=== PATIENT | male | born 1960 | race Caucasian/White ===

== ENCOUNTER 2019-11-10 07:46 | Outpatient (CLI) | payer OTHER, SELFPAY ==
[2019-11-10 08:19] LABS: Hemoglobin A1C 8.3 % (<5.7)
[2019-11-10 08:26] LABS: Alanine Aminotransferase 28 U/L (4-50); Albumin Level 4.2 g/dL (3.5-5.1); Alkaline Phosphatase 53 U/L (38-126); Aspartate Amino Transferase 24 U/L (17-59); Bilirubin,Total 0.4 mg/dL (0.2-1.3); Blood Urea Nitrogen 7 mg/dL (9-20); Calcium 8.5 mg/dL (8.4-10.2); Carbon Dioxide 27 mmol/L (22-30); Chloride 99 mmol/L (98-107); Cholesterol 156 mg/dL (0-200); Estimated Glomerular Filt Rate > 60; Glucose 192 mg/dL (75-110); HDL Direct 34 mg/dL; Potassium 3.4 mmol/L (3.4-5.0); Sodium 135 mmol/L (137-145); Triglycerides 105 mg/dL (<150)
[2019-11-10 08:37] LABS: LDL Cholesterol Direct 105 mg/dL
[2019-11-10 08:58] LABS: Prostate Specific Antigen 4.5 ng/mL (< OR = 4.0)
== END 2019-11-10 07:47 | disposition home or self-care (01) ==
PROVIDERS: PCP Emergency Medicine; Visit Provider Emergency Medicine
DX: E78.2 Mixed hyperlipidemia (principal); E11.9 Type 2 diabetes mellitus without complications; Z12.5 Encounter for screening for malignant neoplasm of prostate
CPT/HCPCS: 36415; 80053; 80061; 83036; 84153

== ENCOUNTER 2020-12-22 09:01 | Outpatient (CLI) | payer OTHER, SELFPAY ==
[2020-12-22 09:30] LABS: Hemoglobin A1C 8.7 % (<5.7)
[2020-12-22 09:35] LABS: Alanine Aminotransferase 19 U/L (4-50); Albumin Level 4.3 g/dL (3.5-5.1); Alkaline Phosphatase 46 U/L (38-126); Anion Gap 6 mmol/L (8-16); Aspartate Amino Transferase 23 U/L (17-59); Bilirubin,Total 0.6 mg/dL (0.2-1.3); Blood Urea Nitrogen 10 mg/dL (9-20); Calcium 9.2 mg/dL (8.4-10.2); Carbon Dioxide 31 mmol/L (22-30); Chloride 101 mmol/L (98-107); Cholesterol 145 mg/dL (0-200); Estimated Glomerular Filt Rate > 60; Glucose 174 mg/dL (75-110); HDL Direct 34 mg/dL; Potassium 4.1 mmol/L (3.4-5.0); Sodium 138 mmol/L (137-145); Triglycerides 126 mg/dL (<150)
[2020-12-22 09:46] LABS: LDL Cholesterol Direct 81 mg/dL
[2020-12-22 10:05] LABS: Prostate Specific Antigen 5.7 ng/mL (< OR = 4.0)
== END 2020-12-22 09:02 | disposition home or self-care (01) ==
PROVIDERS: PCP Emergency Medicine; Visit Provider Emergency Medicine
DX: E11.9 Type 2 diabetes mellitus without complications (principal); E78.5 Hyperlipidemia, unspecified; Z12.5 Encounter for screening for malignant neoplasm of prostate
CPT/HCPCS: 36415; 80053; 80061; 83036; 84153; G0103

== ENCOUNTER 2021-08-28 10:33 | Outpatient (CLI) | payer OTHER, MEDICAID, SELFPAY ==
--- NOTE | ~2021-08-28 | MR_ITS ---
EXAMINATION: MR pelvis wo/w con DATE: 08/28/2021 12:03 INDICATION: Malignant neoplasm of the prostate TECHNIQUE: Magnetic resonance imaging (MRI) of the pelvis was performed without and with 20 mL Multih ance intravenous contrast. Full-field sequences of the pelvis included axial and coronal T2-weighted SS FSE, axial, sagittal and coronal 2D FIESTA, axial 2D FIESTA FS, axial SSFSE-IR DEB, axial dual-ech o T1-weighted FSPGR, axial and coronal T1 weighted LAVA, 3D axial T2 Cube, axial diffusion-weighted S E with apparent diffusion coefficient (ADC) maps. Postcontrast sequences included a time course axial T1-weighted LAVA and sagittal and coronal T1-weighted LAVA. COMPARISON: None. FINDINGS: Mild prostatomegaly measuring 4.5 x 3.1 x and 3.3 cm. Region of T2 hyperintense nonenhancing hydrogel positioned between the prostate in the anterior wall of the rectum. The collection of hydrogel measu res 1.4 cm in maximal thickness, 2.6 cm left to right and 4.7 cm craniocaudally. Bladder is normal. V isualized portion of the bowels are unremarkable. Couple nonenhancing right renal cysts the largest a 2.7 similar exophytic cyst at the lower pole. No pathologically enlarged pelvic or inguinal lymphade nopathy. Small bilateral fat-containing inguinal hernias. Moderate lower lumbar spondylosis. No abnor estefania enhancing bone lesions. IMPRESSION: 1. 4.7 x 2.6 x 1.4 cm collection of hydrogel between the mildly enlarged prostate in the anterior wal l of the rectum. 2. No evident pelvic metastatic disease. 3. Small bilateral fat-containing inguinal hernias. Reviewed, dictated and finalized at location A. HER IMPRESSION: 1. 4.7 x 2.6 x 1.4 cm collection of hydrogel between the mildly enlarged prosta te in the anterior wall of the rectum. 2. No evident pelvic metastatic disease. 3. Small bilateral fat-containing inguinal hernias.
[2021-08-28 11:23] LABS: Estimated Glomerular Filt Rate > 60
== END 2021-08-28 10:34 | disposition home or self-care (01) ==
LOC: ANHIMG 10:42
PROVIDERS: PCP Emergency Medicine; Visit Provider Radiology Radiation Oncology
DX: C61 Malignant neoplasm of prostate (principal); K40.20 Bilateral inguinal hernia, without obstruction or gangrene, not specified as recurrent
CPT/HCPCS: 72197; A9577

== ENCOUNTER 2021-09-18 09:35 | Outpatient (CLI) | payer OTHER, MEDICAID, SELFPAY ==
[2021-09-18 10:13] LABS: Alanine Aminotransferase 25 U/L (4-50); Albumin Level 4.3 g/dL (3.5-5.1); Anion Gap 7 mmol/L (8-16); Aspartate Amino Transferase 26 U/L (17-59); Bilirubin,Total 0.5 mg/dL (0.2-1.3); Blood Urea Nitrogen 10 mg/dL (9-20); Calcium 9.1 mg/dL (8.4-10.2); Carbon Dioxide 29 mmol/L (22-30); Chloride 101 mmol/L (98-107); Estimated Glomerular Filt Rate > 60; Glucose 219 mg/dL (65-110); Potassium 3.9 mmol/L (3.4-5.0); Sodium 137 mmol/L (137-145); Triglycerides 240 mg/dL (<150)
[2021-09-18 10:14] LABS: Alkaline Phosphatase 55 U/L (38-126); Cholesterol 193 mg/dL (0-200); HDL Direct 38 mg/dL
[2021-09-18 10:24] LABS: LDL Cholesterol Direct 119 mg/dL
[2021-09-18 10:52] LABS: Microalbumin Urine Random 52.6 mg/L (0-16.7)
[2021-09-18 10:53] LABS: Creatinine Urine 61.1 mg/dL; MALB Creatinine Ratio 86.1 mg/g (0-30)
== END 2021-09-18 09:36 | disposition home or self-care (01) ==
LOC: ANHLAB 09:39
PROVIDERS: PCP Emergency Medicine; Visit Provider Emergency Medicine
DX: I10 Essential (primary) hypertension (principal); E78.2 Mixed hyperlipidemia; E11.9 Type 2 diabetes mellitus without complications
CPT/HCPCS: 36415; 80053; 80061; 82043; 83036

== ENCOUNTER 2021-12-17 08:28 | Outpatient (CLI) | payer OTHER, MEDICAID, SELFPAY ==
--- NOTE | ~2021-12-17 | XR_ITS ---
EXAMINATION: XR hip LT min 2V DATE: 12/17/2021 09:11 INDICATION: Left hip pain. TECHNIQUE: 2 views of left hip were obtained. COMPARISON: None. FINDINGS: Bone alignment is normal. No fracture. There is mild left hip osteoarthritis. Brachytherapy seeds overlie the prostate. IMPRESSION: 1. Mild left hip osteoarthritis. Reviewed, dictated and finalized at location A.
[2021-12-17 09:02] LABS: Hemoglobin A1C 9.5 % (<5.7)
[2021-12-17 09:04] LABS: Alanine Aminotransferase 26 U/L (6-50); Albumin Level 4.4 g/dL (3.5-5.1); Alkaline Phosphatase 58 U/L (38-126); Anion Gap 8 mmol/L (8-16); Aspartate Amino Transferase 24 U/L (17-59); Bilirubin,Total 0.6 mg/dL (0.2-1.3); Blood Urea Nitrogen 12 mg/dL (9-20); Calcium 8.6 mg/dL (8.4-10.2); Carbon Dioxide 28 mmol/L (22-30); Chloride 95 mmol/L (98-107); Cholesterol 192 mg/dL (0-200); Estimated Glomerular Filt Rate > 60; Glucose 252 mg/dL (65-110); HDL Direct 38 mg/dL; Potassium 3.7 mmol/L (3.4-5.0); Sodium 131 mmol/L (137-145); Triglycerides 273 mg/dL (<150)
[2021-12-17 09:15] LABS: LDL Cholesterol Direct 109 mg/dL
== END 2021-12-17 08:29 | disposition home or self-care (01) ==
PROVIDERS: PCP Emergency Medicine; Visit Provider Emergency Medicine
DX: M25.552 Pain in left hip (principal); I10 Essential (primary) hypertension; E78.2 Mixed hyperlipidemia; E11.9 Type 2 diabetes mellitus without complications; M16.12 Unilateral primary osteoarthritis, left hip
CPT/HCPCS: 36415; 73502; 80053; 80061; 83036

== ENCOUNTER 2021-12-30 18:06 | Emergency (ER) | payer OTHER, MEDICAID, SELFPAY ==
[2021-12-30 18:13] VITALS: BP 154/83; PULSE 101; RESP 20; TEMP 36.8; O2SAT 97
[2021-12-30 18:17] VITALS: BP 154/83; PULSE 101; RESP 20; TEMP 36.8; O2SAT 97
--- NOTE | 2021-12-30 18:49 | ED.GENADULT ---
HPI - General Adult General Chief complaint: Extremity Problem,Nontraumatic Stated complaint: L HIP PAIN Source: patient Mode of arrival: ambulatory Limitations: no limitations History of Present Illness HPI narrative: Patient presents for evaluation of left hip pain. He states symptoms have been present for several months. He believes his symptoms started after stepping down of the platform of a stair. He had an x ray performed on 12/17/21 that showed mild osteoarthritis. Currently he rates the pain as 6/10 in severity, without descriptive quality. No loss of ROM. He states his PCP gave him a script for prednisone. He has also been taking NSAIDs. He states the medications have somewhat helped. He saw a chiropractor twice for his symptoms. He felt the first session was quite effective however the second session was not particularly helpful. He states that he consumed ETOH yesterday in an attempt to decrease his pain and did experience some relief. He also reports discomfort in his right elbow. He acknowledges that he has bursitis in that joint. He reports some redness but denies any fever, chills, nausea, vomiting, loss of ROM. He is diabetic but indicates his BS at home are in 140's. Related Data Home Medications Medication Instructions Recorded Confirmed aspirin 81 mg tablet,delayed 81 mg PO DAILY 11/03/19 12/30/21 release ([facility] Low Dose Aspirin) Allergies Allergy/AdvReac Type Severity Reaction Status Date / Time No Known Drug Allergies Allergy Unknown Unknown Verified 12/30/21 18:15 Review of Systems Review of Systems: CONSTITUTIONAL: Denies fever, chills, or sweats. EYES: Denies visual changes, redness, or discharge. ENT: Denies rhinorrhea, congestion, sore throat, or otalgia. CARDIOVASCULAR: Denies chest pain, palpitations, or edema. RESPIRATORY: Denies cough or dyspnea. GASTROINTESTINAL: Denies abdominal pain, nausea, vomiting, or diarrhea. GENITOURINARY: Denies dysuria or hematuria. SKIN: Reports redness to right elbow. Denies rash or itching. MUSCULOSKELETAL: Reports pain in right elbow and left hip NEUROLOGIC: Denies headache, numbness, dizziness, or weakness. PSYCHIATRIC: Denies anxiety or depression. [facility] Past Medical History Medical History Arthritis Martinez's palsy Bursitis Diabetes mellitus Positive colorectal cancer screening using Cologuard test Family History Family History Father Hypertension Cerebrovascular accident, Onset Age: 58 Family history of diabetes mellitus in first degree relative Family history of type 2 diabetes mellitus Mother Family history of malignant neoplasm Grandparent Family history of Parkinson's disease Social History Social History Smoking packs per day: 1.5 Smoking cigarettes per day: 30.0 Smoking status: Heavy tobacco smoker Second hand tobacco smoke exposure: No Alcohol intake: current Substance use: never Living arrangements: with family Gender identity (if verbalized by the patient): Male Sexual Orientation (if Verbalized by the Patient): Straight or Heterosexual Spiritual care concerns: No Exam Narrative: GENERAL: Well-appearing, well-nourished, and in no acute distress. HEAD: Normocephalic, atraumatic. EYES: PERRLA and EOMI. ENT: Nares clear, no rhinorrhea or epistaxis. Mucous membranes moist. Oropharynx without tonsillar hypertrophy exudate or other lesions. Bilateral TMs pearly bustillos nonbulging NECK: Supple. No adenopathy or masses. No carotid bruits or JVD CHEST: Clear to auscultation. No respiratory distress. No wheezes rales or rhonchi HEART: Regular rate and rhythm. No murmur heard. Normal peripheral pulses. ABDOMEN: Soft, nontender, nondistended, normal active bowel sounds. EXTREMITIES: There is tenderness to right elbow.
== END 2021-12-30 18:51 | disposition home or self-care (01) ==
PROVIDERS: Emergency Provider Nurse Practitioner
DX: M16.12 Unilateral primary osteoarthritis, left hip (principal); M70.31 Other bursitis of elbow, right elbow; E11.9 Type 2 diabetes mellitus without complications; F17.219 Nicotine dependence, cigarettes, with unspecified nicotine-induced disorders
CPT/HCPCS: 99213; G0463